=== PATIENT | female | born 1965 | race Caucasian/White ===

== ENCOUNTER 2017-03-06 21:43 | Emergency (ER) | payer BC ==
[2017-03-06] MEDS ORDERED: MORPHINE SULFATE 4 MG/ML SYRINGE IV STA (22:00)
[2017-03-06] MEDS ORDERED: SODIUM CHLORIDE 0.9% 1,000 ML IV STA (22:00)
[2017-03-06 22:12] LABS: Appearance,Urine Turbid (Clear); Bacteria,Urine Occasional /hpf; Bilirubin,Urine 1+ (Negative); Glucose,Urine (UA) Negative (Negative); Ketones,Urine Negative (Negative); Leukocyte Esterase,Urine Negative (Negative); Mucus,Urine Few /hpf; Nitrite,Urine Positive (Negative); PH, Urine 5.5 (5.0-8.0); Particle Count 29242; Protein,Urine 2+ (Negative); RBC,Urine >182 /hpf (0-5); Squamous Epithelial Cell,Urine 16 /hpf (0-4); UA Billing (MACRO vs. MICRO) MICRO; WBC,Urine >182 /hpf (0-5)
[2017-03-06 22:35] LABS: Basophils # (A) 0.1 k/uL (0-0.2); Basophils % (A) 1 %; CH 29.2; CHCM 35.2; Eosinophils # (A) 0.6 k/uL (0-0.7); Eosinophils % (A) 5 %; HCT 42.9 % (34.0-46.0); HDW 2.45; HGB 15.2 gm/dL (11.4-16.0); Luc # (Auto) 0.24; Luc % (Auto) 2; Lymphocytes # (A) 4.3 k/uL (1.0-4.8); Lymphocytes % (A) 35 %; MCH 29.6 pg (25.0-35.0); MCHC 35.5 g/dL (31.0-37.0); MCV 83.3 fL (80.0-100.0); Mean Platelet Volume 6.9; Monocytes # (A) 0.6 k/uL (0-1.0); Monocytes % (A) 5 %; Neutrophils # (A) 6.6 k/uL (1.3-7.7); Neutrophils % (A) 53 %; RBC 5.14 m/uL (3.80-5.40); RDW 14.7 % (11.5-15.5); WBC 12.3 k/uL (3.8-10.6); WBC (Perox) 10.97
[2017-03-06 22:45] LABS: ALT 45 U/L (9-52); AST 25 U/L (14-36); Alkaline Phosphatase 81 U/L (38-126); Amylase 44 U/L (30-110); Anion Gap 12 mmol/L; Blood Urea Nitrogen 13 mg/dL (7-17); Calcium 10.1 mg/dL (8.4-10.2); Carbon Dioxide 26 mmol/L (22-30); Chloride 104 mmol/L (98-107); Glucose 96 mg/dL (74-99); Non-African American GFR(MDRD) >60 (>60 ml/min/1.73 sqM); Potassium 3.9 mmol/L (3.5-5.1); Sodium 142 mmol/L (137-145); Total Bilirubin 0.3 mg/dL (0.2-1.3); Total Protein 7.7 g/dL (6.3-8.2)
[2017-03-06] MEDS ORDERED: KETOROLAC 30 MG/ML 1 ML VIAL IVP STA (23:47)
--- NOTE | 2017-03-06 23:58 | XR ---
EXAM: XR Abdomen, 1 View CLINICAL HISTORY: Reason: abdominal pain TECHNIQUE: Frontal upright views of the abdomen/pelvis. COMPARISON: No relevant prior studies available. FINDINGS: Gastrointestinal tract: Unremarkable. No dilation. Organs: Prior cholecystectomy. Bones/joints: Unremarkable. IMPRESSION: No acute findings. No bowel obstruction.
--- NOTE | 2017-03-07 00:22 | ED ---
Abdominal Pain HPI - General Chief Complaint: Abdominal Pain Stated Complaint: Abd Pain Time Seen by Provider: 03/06/17 21:52 Source: patient, RN notes reviewed, old records reviewed Mode of arrival: ambulatory Limitations: no limitations - History of Present Illness Initial Comments: 51-year-old female presents emergency Department chief complaint of sudden suprapubic pain for the past 4 hours. Patient reports that she thought that she may have urinary tract traction and started to take Pyridium. Patient reports that it is not helped with the pain. She states that she feels like she frequently needs to use the restroom over the past 4 hours. She denies any prior symptoms. Reports he had normal bowel movements. Denies any history of kidney stones. She states that she has a ALLERGIC reaction to oral antibiotics at all infectious taken in the past To be injected or through an IV. Patient reports she has severe IBS and symptoms when she takes antibiotics. - Related Data Home Medications Medication Instructions Recorded Confirmed ALPRAZolam [Xanax] 0.25 mg PO DAILY PRN 03/06/17 03/06/17 Albuterol Sulfate [Proair Hfa] 1 - 2 puff INHALATION RT-Q6H PRN 03/06/17 DULoxetine HCL [Cymbalta] 60 mg PO DAILY 03/06/17 03/06/17 EPINEPHrine (Auto Inject) [Epipen] 0.3 mg IM ONCE PRN 03/06/17 03/06/17 Ipratropium-Albuterol Nebulize 3 ml INHALATION RT-Q6H PRN 03/06/17 03/06/17 [Duoneb 0.5 mg-3 mg/3 ml Soln] LORazepam [Ativan] 2 mg PO HS 03/06/17 03/06/17 Levothyroxine Sodium [Synthroid] 50 mcg PO DAILY 03/06/17 03/06/17 Liothyronine Sodium [Cytomel] 10 mcg PO BID 03/06/17 03/06/17 Montelukast [Singulair] 10 mg PO HS 03/06/17 03/06/17 Phenazopyridine HCl 95 mg PO TID PRN 03/06/17 03/06/17 hydrOXYzine HCL [Atarax] 50 mg PO HS 03/06/17 03/06/17 Previous Rx's Medication Instructions Recorded Ciprofloxacin HCl [Cipro] 500 mg PO Q12HR #14 tablet 03/07/17 Ketorolac [Toradol] 10 mg PO TID #15 tab 03/07/17 Allergies Allergy/AdvReac Type Severity Reaction Status Date / Time oral antibiotics Allergy Unknown Uncoded 03/06/17 21:50 Review of Systems ROS Statement: Those systems with pertinent positive or pertinent negative responses have been documented in the HPI. ROS Other: All systems not noted in ROS Statement are negative. Past Medical History Past Medical History: Asthma, Fibromyalgia Additional Past Medical History / Comment(s): IBS, chronic blood in urine History of Any Multi-Drug Resistant Organisms: None Reported Past Surgical History: Bariatric Surgery, Section, Cholecystectomy Additional Past Surgical History / Comment(s): sinus Past Psychological History: Anxiety, Depression Smoking Status: Never smoker Past Alcohol Use History: None Reported Past Drug Use History: None Reported General Exam - General Exam Comments Initial Comments: 51-year-old female. No acute distress. Limitations: no limitations General appearance: alert, in no apparent distress Head exam: Present: atraumatic, normocephalic, normal inspection Eye exam: Present: normal appearance, PERRL, EOMI. Absent: scleral icterus, conjunctival injection, periorbital swelling ENT exam: Present: normal exam, mucous membranes moist Neck exam: Present: normal inspection. Absent: tenderness, meningismus, lymphadenopathy Respiratory exam: Present: normal lung sounds bilaterally. Absent: respiratory distress, wheezes, rales, rhonchi, stridor Cardiovascular Exam: Present: regular rate, normal rhythm, normal heart sounds. Absent: systolic murmur, diastolic murmur, rubs, gallop, clicks GI/Abdominal exam: Present: soft, tenderness (Patient has suprapubic tenderness. ), normal bowel sounds. Absent: distended, guarding, rebound, rigid Extremities exam: Present: normal inspection, full ROM, normal capillary refill. Absent: tenderness, pedal edema, joint swelling, calf tenderness Back exam: Present: normal inspection Neurological exam: Present: alert, oriented X3, CN II-XII intact Psychiatric exam: Present: normal affect, normal mood Skin exam: Present: warm, dry, intact, normal color. Absent: rash Course Vital Signs 03/06/17 03/07/17 21:45 00:40 Temperature 98.8 F 97.7 F Pulse Rate 106 H 78 Respiratory 22 18 Rate Blood Pressure 153/90 125/59 O2 Sat by Pulse 97 98 Oximetry Medical Decision Making - Medical Decision Making 51-year-old female chief complaint of acute onset of suprapubic pain for the past 4 hours. She states that she's had no recent or chills or any other symptoms. She did take some Pyridium that she thought she was having a urinary tract infection. On room doing of her labs she did have evidence of significant urinary tract infection with red blood cells and white blood cells and positive nitrate and leukocyte Estrace. Patient continued to go to and from the bathroom during her emergency stay. Patient discussed with me that she cannot take oral antibiotics that she has severe IBS which is exacerbated with taking oral antibiotic. She reports that she has to have either IM injections or through an IV. Patient continues to complain of pain despite 4 mg of morphine and fifth 30 mg of Toradol. Patient was given 1 g of Rocephin through the IV. Patient was reevaluated and reports that she is feeling much better at this time. Discussed that I will write her for IM injection for antibiotics. She plans to follow-up with her primary care provider tomorrow. Also discussed that he might patient for Toradol and give her a starter pack of Tylenol 3 for pain medication. Patient agrees. Patient understands treatment plan will comply. Return parameters were discussed. - Lab Data Result diagrams: 03/06/17 22:21 03/06/17 22:21 Lab Results 03/06/17 03/06/17 03/06/17 Range/Units 22:01 22:21 22:21 WBC 12.3 H (3.8-10.6) k/uL RBC 5.14 (3.80-5.40) m/uL Hgb 15.2 (11.4-16.0) gm/dL Hct 42.9 (34.0-46.0) % MCV 83.3 (80.0-100.0) fL MCH 29.6 (25.0-35.0) pg MCHC 35.5 (31.0-37.0) g/dL RDW 14.7 (11.5-15.5) % Plt Count 358 (150-450) k/uL Neutrophils % 53 % Lymphocytes % 35 % Monocytes % 5 % Eosinophils % 5 % Basophils % 1 % Neutrophils # 6.6 (1.3-7.7) k/uL Lymphocytes # 4.3 (1.0-4.8) k/uL Monocytes # 0.6 (0-1.0) k/uL Eosinophils # 0.6 (0-0.7) k/uL Basophils # 0.1 (0-0.2) k/uL Sodium 142 (137-145) mmol/L Potassium 3.9 (3.5-5.1) mmol/L Chloride 104 (98-107) mmol/L Carbon Dioxide 26 (22-30) mmol/L Anion Gap 12 mmol/L BUN 13 (7-17) mg/dL Creatinine 0.69 (0.52-1.04) mg/dL Est GFR (MDRD) Af Amer >60 (>60 ml/min/1.73 sqM) Est GFR (MDRD) Non-Af >60 (>60 ml/min/1.73 sqM) Glucose 96 (74-99) mg/dL Calcium 10.1 (8.4-10.2) mg/dL Total Bilirubin 0.3 (0.2-1.3) mg/dL AST 25 (14-36) U/L ALT 45 (9-52) U/L Alkaline Phosphatase 81 (38-126) U/L Total Protein 7.7 (6.3-8.2) g/dL Albumin 4.6 (3.5-5.0) g/dL Amylase 44 (30-110) U/L Lipase 99 (23-300) U/L Urine Color Dark Brown Urine Appearance Turbid H (Clear) Urine pH 5.5 (5.0-8.0) Ur Specific [place] 1.020 (1.001-1.035) Urine Protein 2+ H (Negative) Urine Glucose (UA) Negative (Negative) Urine Ketones Negative (Negative) Urine Blood Large H (Negative) Urine Nitrite Positive H (Negative) Urine Bilirubin 1+ H (Negative) Urine Urobilinogen 6.0 (<2.0) mg/dL Ur Leukocyte Esterase Negative (Negative) Urine RBC >182 H (0-5) /hpf Urine WBC >182 H (0-5) /hpf Ur Squamous Epith Cells 16 H (0-4) /hpf Urine Bacteria Occasional H (None) /hpf Urine Mucus Few H (None) /hpf - Radiology Data Radiology results: report reviewed KUB is negative for any acute process. No obstruction. Disposition Clinical Impression: UTI (urinary tract infection) Disposition: HOME SELF-CARE Condition: Good Instructions: Urinary Tract Infection in Women (ED) Additional Instructions: Patient advised to follow-up with primary care provider. Return to the emergency department if any alarming signs or symptoms occur. Take medications as directed. Prescriptions: Ciprofloxacin HCl [Cipro] 500 mg PO Q12HR #14 tablet Ketorolac [Toradol] 10 mg PO TID #15 tab Referrals: Gomez Jordan MD [Primary Care Provider] - 1-2 days Time of Disposition: 01:10
[2017-03-07 00:48] VITALS: BP 125/59; PULSE 78; RESP 18; TEMP 97.7
[2017-03-07] MEDS ORDERED: ACET/COD 300 MG/30 MG STARTER PACK 6 TAB BTL PO STA (01:10)
== END 2017-03-07 01:45 | disposition home or self-care (01) ==
LOC: EC 21:43
DX: N39.0 Urinary tract infection, site not specified (principal); F41.9 Anxiety disorder, unspecified; F32.9 Major depressive disorder, single episode, unspecified; Z79.899 Other long term (current) drug therapy
CPT/HCPCS: 36415; 80053; 82150; 83690; 85025; 81001; 87086; 87077; 87186; 74000; 99284; 96365; 96366; 96375 ×2; 96361 ×2; J2270; J0696; J1885